=== PATIENT | male | born 2000 | race Caucasian/White ===

== ENCOUNTER 2023-10-10 07:45 | Outpatient (CLI) | payer OTHER ==
--- NOTE | 2023-10-10 11:16 | XRAY Report ---
PROCEDURE: Chest 2V INDICATIONS: CHEST PAIN TECHNIQUE: 2 views of the chest were acquired. COMPARISON: None. FINDINGS: Surgical changes and devices: None. Lungs and pleura: No pleural effusions or pneumothorax. Lungs are clear. Mediastinum: Mediastinal contours appear normal. Heart size is normal. Bones and chest wall: No suspicious bony lesions. Overlying soft tissues appear unremarkable. IMPRESSION: No acute cardiopulmonary process. Reviewed by: Ceasar Manjarrez MD on 10/10/2023 11:15 AM [facility] Approved by: Ceasar Manjarrez MD on 10/10/2023 11:15 AM [facility] Station ID: [id number]
== END 2023-10-10 08:00 | disposition home or self-care (01) ==
LOC: DI.N 07:45
PROVIDERS: ATTEND Physician Assistant Medical
DX: R07.9 Chest pain, unspecified (principal)

== ENCOUNTER 2023-12-26 12:08 | Emergency (ER) | payer OTHER ==
[2023-12-26] MEDS: KETOROLAC 30 MG/ML VIAL IVP STA (12:38)
[2023-12-26 12:41] LABS: BASOPHILS % (AUTO) 0.2 %; EOSINOPHILS % (AUTO) 0.8 %; HGB - HEMOGLOBIN 15.4 g/dL (14.0-18.0); LYMPHOCYTES # (AUTO) 1.2 10^3/uL (1.5-3.5); LYMPHOCYTES % (AUTO) 22.5 %; MEAN CORPUSCULAR HEMOGLOBIN 29.8 pg (27.0-31.0); MEAN CORPUSCULAR HGB CONC 35.8 g/dL (32.0-36.0); MEAN CORPUSCULAR VOLUME 83.2 fL (80.0-94.0); MEAN PLATELET VOLUME 10.8 fL (7.4-11.4); MONOCYTES # (AUTO) 0.4 10^3/uL (0.0-1.0); MONOCYTES % (AUTO) 7.4 %; NEUTROPHILS # (AUTO) 3.6 10^3/uL (1.5-6.6); NEUTROPHILS % (AUTO) 68.7 %; PLT - PLATELET COUNT 176 10^3/uL (130-450); RED BLOOD COUNT 5.17 10^6/uL (4.70-6.10); RED CELL DISTRIBUTION WIDTH 12.6 % (12.0-15.0); WHITE BLOOD COUNT 5.2 x10^3/uL (4.8-10.8)
[2023-12-26 12:42] LABS: BILIRUBIN,URINE NEGATIVE (NEGATIVE); GLUCOSE, URINE (UA) NEGATIVE (NEGATIVE); KETONES,URINE (UA) NEGATIVE (NEGATIVE); LEUKOCYTE ESTERASE, URINE NEGATIVE (NEGATIVE); NITRITE,URINE NEGATIVE (NEGATIVE); OCCULT BLOOD,URINE NEGATIVE (NEGATIVE); PROTEIN,URINE NEGATIVE (NEGATIVE); UROBILINOGEN,URINE 0.2 (NORMAL) E.U./dL (NORMAL)
[2023-12-26 12:43] LABS: CLARITY,URINE CLEAR (CLEAR)
[2023-12-26 12:57] LABS: ALBUMIN 4.9 g/dL (3.2-5.5); ALBUMIN/GLOBULIN RATIO 1.6 (1.0-2.2); ALKALINE PHOSPHATASE 55 IU/L (42-121); ALT ALANINE AMINOTRANSFERASE 22 IU/L (10-60); AST ASPARTATE AMINOTRANSFERASE 14 IU/L (10-42); BILIRUBIN,TOTAL 0.5 mg/dL (0.2-1.0); BUN - BLOOD UREA NITROGEN 12 mg/dL (6-20); CALCIUM 9.8 mg/dL (8.5-10.3); CARBON DIOXIDE - CO2 26 mmol/L (21-32); CHLORIDE 106 mmol/L (101-111); GFR - MDRD 92 (>89); GLUCOSE 80 mg/dL (74-104); POTASSIUM 3.8 mmol/L (3.5-4.5); SODIUM 139 mmol/L (135-145); TOTAL PROTEIN 7.9 g/dL (6.4-8.9)
[2023-12-26 12:58] LABS: LIPASE < 10 U/L (11-82)
--- NOTE | 2023-12-26 13:07 | ED Physician Documentation ---
PD HPI ABD PAIN - Stated complaint Stated Complaint: ABD/SIDE PX - Chief complaint Chief Complaint: Abd Pain - Additional information Additional information: 23-year-old male sent here from [facility] for concerns of kidney stone. Patient reports that he has been having about 5 months of bilateral flank pain 3 to 4 months ago he had some x-rays, labs, urine done and was told by his may be doctor that he had kidney stones. He unfortunately missed his appointment with his [facility] doctor for follow-up and has been experiencing increased intermittent flank pain and is worried that maybe he has an ongoing kidney stone and wanted to come to the emergency department for further evaluation. Patient says that the pain comes and goes in waves no fevers or chills no urinary urgency or frequency and no difficulty with urination PD PAST MEDICAL HISTORY - Past Medical History Past Medical History: No - Past Surgical History Past Surgical History: No - Present Medications Home Medications: Ambulatory Orders Medication Instructions Recorded Confirmed No Known Home Medications 12/26/23 12/26/23 - Allergies Allergies/Adverse Reactions: Allergies Allergy/AdvReac Type Severity Reaction Status Date / Time No Known Drug Allergies Allergy Verified 12/26/23 12:21 - Social History Does the pt smoke?: No Smoking Status: Former smoker Does the pt drink ETOH?: Yes Does the pt have substance abuse?: No PD ED PE NORMAL - Vitals Vital signs reviewed: Yes - Respiratory Respiratory: No respiratory distress, Clear bilaterally - Abdomen Abdomen: Normal bowel sounds, Soft, Non tender, No organomegaly - Back Back: No CVA TTP - Derm Derm: Normal color, Warm and dry, No rash - Psych Psych: Normal mood, Normal affect - Free text exam Free text exam: Neck and back are without deformity, external skin changes, or signs of trauma. Curvature of the cervical, thoracic, and lumbar spine are within normal limits. Bony features of the shoulders and hips are of equal height bilaterally. Posture is upright, gait is smooth, steady, and within normal limits. No tenderness noted on palpation of the spinous processes. Spinous processes are midline. Cervical, thoracic, and lumbar paraspinal muscles are not tender and are without spasm. No discomfort is noted with flexion, extension, and [id number] rotation of the cervical spine, full range of motion is noted. Full range of motion including flexion, extension, and [id number] rotation of the thoracic and lumbar spine are noted and without discomfort. Straight leg raise test is negative bilaterally. Sensation to the upper and lower extremities is normal bilaterally. No clonus is noted. [employer] strength is normal bilaterally. Dorsi/plantar flexion is normal bilaterally. Results - Vitals Vitals: Vital Signs - 24 hr 12/26/23 12/26/23 12:14 14:21 Temperature 36.6 C Heart Rate 75 58 L Respiratory 18 15 Rate Blood Pressure 134/75 H 139/70 H O2 Saturation 100 98 Oxygen O2 Source Room air - Labs Labs: Laboratory Tests 12/26/23 12/26/23 12/26/23 12:28 12:32 12:32 WBC 5.2 RBC 5.17 Hgb 15.4 Hct 43.0 MCV 83.2 MCH 29.8 MCHC 35.8 RDW 12.6 Plt Count 176 MPV 10.8 Neut # (Auto) 3.6 Lymph # (Auto) 1.2 L [place] # (Auto) 0.4 Eos # (Auto) 0.0 Baso # (Auto) 0.0 Absolute Nucleated RBC 0.00 Nucleated RBC % 0.0 Sodium 139 Potassium 3.8 Chloride 106 Carbon Dioxide 26 Anion Gap 7.0 BUN 12 Creatinine 1.0 Estimated GFR (MDRD) 92 Glucose 80 Calcium 9.8 Total Bilirubin 0.5 AST 14 ALT 22 Alkaline Phosphatase 55 Total Protein 7.9 Albumin 4.9 Globulin 3.0 Albumin/Globulin Ratio 1.6 Lipase < 10 L Urine Color YELLOW Urine Clarity CLEAR Urine pH 6.0 Ur Specific [place] 1.025 Urine Protein NEGATIVE Urine Glucose (UA) NEGATIVE Urine Ketones NEGATIVE Urine Occult Blood NEGATIVE Urine Nitrite NEGATIVE Urine Bilirubin NEGATIVE Urine Urobilinogen 0.2 (NORMAL) Ur Leukocyte Esterase NEGATIVE Ur Microscopic Review NOT INDICATED Urine Culture Comments NOT INDICATED - Rads (name of study) CT abdomen pelvis without Relevant Findings:: Final report received, EMP independent interpretation of test, Other (No renal calculi or ureteral stone no hydronephrosis. Bilateral small fat-containing inguinal hernias) PD Medical Decision Making - ED course ED course: 23-year-old male presents emergency department for what he describes originally as bilateral intermittent flank pain and lower back pain. Differentials included but are not limited to renal calculi, pyelonephritis, lumbar ago. Labs and urine were complete urinalysis does not reveal any hematuria no leukocytes or nitrates concerning for infection make me less suspicious for possible pyelonephritis. No leukocytosis or electrolyte abnormalities. CT KUB was also complete and does not reveal any renal calculi, no ureteral stones or hydronephrosis no acute abdominal processes and incidentally found bilateral small fat-containing inguinal hernias. Patient reports most of his pain is to his lower back, I believe that he is actually experiencing lumbago. CT ruled out any sort of renal calculi or other renal abnormalities. He has no CVA tenderness. He reports that his back pain is almost entirely alleviated after receiving IM ketorolac. He is told to follow-up with primary care provider for physical therapy referral to help with strengthening his core for his lumbago. Return precautions given all questions answered patient is safe for discharge. Departure - Departure Disposition: Home, Self Care Clinical Impression: Lumbago Qualifiers: Chronicity: acute Back pain laterality: midline Sciatica presence: without sciatica Qualified Code(s): M54.50 - Low back pain, unspecified Condition: Stable Instructions: ED Spasm Back No Trauma Comments: Thank you for trusting us with your care. We have completed a CT scan as well as labs and urinalysis and I am not seeing any acute abnormalities or findings at this point in time that would indicate possible kidney stones. Your urine is unremarkable there is no blood in it your labs do not show any signs or symptoms of infection we have also completed a CT scan which was also found to be unremarkable. Incidentally we did find bilateral small fat-containing inguinal hernias although there is nothing that needs to be done for this. I have copied and pasted the CT results for your personal reading below. Please follow-up with your primary care provider outpatient for further evaluation of your lower back pain I believe that you would greatly benefit from physical therapy to help with some core strengthening exercises to help with your lower back pain. Please alternate between Tylenol ibuprofen for pain and discomfort you can take 1000 mg of Tylenol every 8 hours and 600 to 800 mg of ibuprofen every 6 hours for pain and discomfort. Please come back to the emergency department starting to notice any fevers or chills, signs or symptoms of infection, urinary or bowel incontinence. EXAM: [id number] CT/ABPEWO ([id number]) PROCEDURE: Abdomen/Pelvis WO INDICATIONS: kidney stone TECHNIQUE: A CT scan of the abdomen and pelvis was performed without the use of intravenous contrast. Images were recorded and evaluated at appropriate window settings. Reformats: coronal and sagittal. For radiation dose reduction, the following was used: automated exposure control, adjustment of mA and/or kV according to patient size. COMPARISON: None. FINDINGS: Image quality: Diagnostic. Lower chest: Unremarkable. Liver: No contour-deforming mass. Gallbladder and biliary tree: No radiopaque stones or wall thickening. No biliary dilation. Spleen: No splenomegaly. Pancreas: No pancreatic ductal dilation. Adrenals: No adrenal nodule. Kidneys and ureters: No hydronephrosis. No renal cystic lesion which requires follow up. No solid mass. Stomach, bowel and peritoneum: No bowel distension. No pathologic free fluid. Lymph nodes: No central or retroperitoneal adenopathy. Vessels: No infrarenal aortic aneurysm. PELVIS Reproductive organs: Unremarkable. Bladder: No wall thickness, accounting for underdistention. Pelvic lymph nodes: No pelvic adenopathy by size criteria. Bones: No aggressive osseous abnormality. Other: Small bilateral fat-containing inguinal hernias. Small fat-containing periumbilical hernia. IMPRESSION: 1. No renal stone, ureteral stone, or hydronephrosis. 2. No acute abdominal process. 3. Bilateral small fat-containing inguinal hernias. Forms: PCP List Discharge Date/Time: 12/26/23 14:35
--- NOTE | 2023-12-26 14:17 | CT Report ---
PROCEDURE: Abdomen/Pelvis WO INDICATIONS: kidney stone TECHNIQUE: A CT scan of the abdomen and pelvis was performed without the use of intravenous contrast. Images we re recorded and evaluated at appropriate window settings. Reformats: coronal and sagittal. For radiat ion dose reduction, the following was used: automated exposure control, adjustment of mA and/or kV ac cording to patient size. COMPARISON: None. FINDINGS: Image quality: Diagnostic. Lower chest: Unremarkable. Liver: No contour-deforming mass. Gallbladder and biliary tree: No radiopaque stones or wall thickening. No biliary dilation. Spleen: No splenomegaly. Pancreas: No pancreatic ductal dilation. Adrenals: No adrenal nodule. Kidneys and ureters: No hydronephrosis. No renal cystic lesion which requires follow up. No solid mas s. Stomach, bowel and peritoneum: No bowel distension. No pathologic free fluid. Lymph nodes: No central or retroperitoneal adenopathy. Vessels: No infrarenal aortic aneurysm. PELVIS Reproductive organs: Unremarkable. Bladder: No wall thickness, accounting for underdistention. Pelvic lymph nodes: No pelvic adenopathy by size criteria. Bones: No aggressive osseous abnormality. Other: Small bilateral fat-containing inguinal hernias. Small fat-containing periumbilical hernia. IMPRESSION: 1. No renal stone, ureteral stone, or hydronephrosis. 2. No acute abdominal process. 3. Bilateral small fat-containing inguinal hernias. Reviewed by: Erasmo Mcdonough MD on 12/26/2023 2:15 PM PDT Approved by: Erasmo Mcdonough MD on 12/26/2023 2:15 PM PDT Station ID: [id number]
[2023-12-26 14:34] VITALS: BP 139/70; O2SAT 98
== END 2023-12-26 14:35 | disposition home or self-care (01) ==
LOC: ED 12:08
DX: M54.50 Low back pain, unspecified (principal); Z87.891 Personal history of nicotine dependence
CPT/HCPCS: 36415; 80053; 81001; 81003; 83690; 85025; 87086; 96374; 99283